=== PATIENT | female | born 1990 | race Caucasian/White ===

== ENCOUNTER → 2017-08-27 | Outpatient (CLI) | payer SELFPAY ==
--- NOTE | 2017-08-27 20:14 | Diagnostic Imaging Report ---
INDICATION: Right axillary lymphadenopathy for several years. EXAMINATION: Right breast ultrasound. FINDINGS: Sonographic interrogation of a lump in the region of the right axilla was performed. No solid or cystic masses are seen. No enlarged lymph nodes are detected. IMPRESSION: No sonographic abnormality in the right axilla is identified. Dictated by: Dictated on workstation # [id number]
== END ==
LOC: RAD 13:24
PROVIDERS: ATTEND Nurse Practitioner Family
DX: R59.0 Localized enlarged lymph nodes (principal)

== ENCOUNTER 2017-12-08 18:57 | Emergency (ER) | payer SELFPAY ==
[~2017-12-08] VITALS: Ht 170.2 cm; Wt 86.2 kg
[2017-12-08 20:09] LABS: BASOPHILS % (AUTO) 0 % (0-10); EOSINOPHILS % (AUTO) 0 % (0-10); HEMATOCRIT 42 % (35-52); HEMOGLOBIN 14.5 G/DL (11.5-16.0); LYMPHOCYTES # (AUTO) 2.5 X 10^3 (1.0-4.0); LYMPHOCYTES % (AUTO) 23 % (12-44); MEAN CORPUSCULAR HEMOGLOBIN 31 PG (25-34); MEAN CORPUSCULAR HGB CONC 35 G/DL (32-36); MEAN CORPUSCULAR VOLUME 89 FL (80-99); MEAN PLATELET VOLUME 11.6 FL (7.4-10.4); MONOCYTES # (AUTO) 1.4 X 10^3 (0.0-1.0); MONOCYTES % (AUTO) 14 % (0-12); NEUTROPHILS # (AUTO) 6.7 X 10^3 (1.8-7.8); NEUTROPHILS % (AUTO) 63 % (42-75); PLATELET COUNT 182 10^3/uL (130-400); RED BLOOD COUNT 4.72 10^6/uL (4.35-5.85); RED CELL DISTRIBUTION WIDTH 13.7 % (10.0-14.5); WHITE BLOOD COUNT 10.6 10^3/uL (4.3-11.0)
[2017-12-08] MEDS ORDERED: PANTOPRAZOLE 40 MG/10 ML (PROTONIX) VIAL IV STA (20:14)
[2017-12-08] MEDS ORDERED: LACTATED RINGERS 1,000 ML IV ONE (20:14)
[2017-12-08] MEDS ORDERED: KETOROLAC 30 MG/ML VIAL IVP ONE (20:15)
[2017-12-08] MEDS ORDERED: HYOSCYAMINE 0.125 MG (LEVSIN) TAB PO ONE (20:15)
[2017-12-08] MEDS ORDERED: ONDANSETRON 4 MG/2 ML (SDV) Z0FRAN IVP ONE (20:15)
[2017-12-08 20:21] LABS: ALANINE AMINOTRANSFERASE 19 U/L (0-55); ALBUMIN 4.3 GM/DL (3.2-4.5); ALKALINE PHOSPHATASE 52 U/L (40-136); AMYLASE 28 U/L (25-125); BILIRUBIN,TOTAL 0.8 MG/DL (0.1-1.0); BUN/CREATININE RATIO 12; CALCIUM 9.3 MG/DL (8.5-10.1); CARBON DIOXIDE 18 MMOL/L (21-32); CHLORIDE 108 MMOL/L (98-107); CREATININE SERUM 0.75 MG/DL (0.60-1.30); GFR ESTIMATED > 60; GLUCOSE 94 MG/DL (70-105); LIPASE 16 U/L (8-78); MAGNESIUM 1.9 MG/DL (1.8-2.4); POTASSIUM 3.5 MMOL/L (3.6-5.0); SODIUM 139 MMOL/L (135-145)
[2017-12-08 20:29] LABS: CLARITY,URINE SLIGHTLY CLOUDY; COLOR,URINE YELLOW; GLUCOSE, URINE (UA) NEGATIVE (NEGATIVE); KETONES,URINE 4+ (NEGATIVE); LEUKOCYTE ESTERASE ,URINE 1+ (NEGATIVE); NITRITE,URINE NEGATIVE (NEGATIVE); PH,URINE 5 (5-9); PROTEIN,URINE 2+ (NEGATIVE); UROBILINOGEN,URINE 1 MG/DL (NORMAL)
[2017-12-08 20:41] LABS: BACTERIA,URINE MODERATE /HPF; BILIRUBIN,URINE 1+ (NEGATIVE); SQUAMOUS EPITHELIAL CELL,UR 25-50 /HPF
[2017-12-08] MEDS ORDERED: IOHEXOL 350 MG/ML 100 ML (OMNIPAQUE 350) VIAL IV ONE (20:45)
[2017-12-08] MEDS ORDERED: NS 100 ML (IVPB) BAG IV ONE (20:45)
--- NOTE | 2017-12-08 20:54 | ED GI ---
General Chief Complaint: Abdominal/GI Problems Stated Complaint: VOMITING,ABD PAIN Nursing Triage Note: 48 HOURS OF N/V/D. INTENSE LOWER ABDOMEN PAIN. HEADACHE. BROWN DISCHARGE FROM VAGINA. IN ATTEMPT TO TAKE MEDICATIONS AT HOME, UNABLE TO KEEP DOWN. Sepsis Screen: Possible Sepsis Risk Source of Information: Patient Exam Limitations: No Limitations History of Present Illness Date Seen by Provider: Dec 08, 2017 Time Seen by Provider: 20:00 Initial Comments PT ARRIVES VIA POV FROM HOME BEGAN GETTING SICK ON Thursday12/06/17 STATES SHE BEGAN TO HAVE EPIGASTRIC PAIN ON THURSDAY, BUT PAIN HAS MOVED DOWN TO LOWER ABDOMEN NOW WELL--PAIN IS INTERMITTENT AND SEVERE CRAMPING C/O NAUSEA, VOMITING AND DIARRHEA STATES SHE HAS NOT KEPT ANYTHING DOWN SINCE THURSDAY--VOMITED X 1 AT 0400 AND HAD DRY HEAVES AT NOON TRIED TO EAT MAC AND CHEESE AT 2000 LAST NIGHT, THEN VOMITED AT 0400 HAS HAD APPROXIMATELY 10 EPISODES OF YELLOW WATERY DIARRHEA TODAY NOW ALSO HAS A MIGRAINE NO KNOWN FEVER BUT HAS HAD SWEATS AND CHILLS TODAY LAST VOID WAS SOMETIME THIS MORNING STATES SHE HAD A FEW SIPS OF WATER THIS MORNING AND AGAIN EARLY THIS AFTERNOON. NO KNOWN SICK CONTACTS OR SUSPICIOUS FOODS LMP 2 WEEKS AGO, BEGAN TO HAVE BROWN / OLD BLOOD VAGINAL SPOTTING/BLEEDING TODAY HAD LEEP PROCEDURE 2-3 MONTHS AGO HAS IMPLANON IN PLACE FOR 3 YEARS, AND HAS PERIODS EVERY 2 WEEKS PCP: ORTEGA Allergies and Home Medications Allergies Coded Allergies: No Known Drug Allergies (Unverified , 12/08/17) Home Medications Hyoscyamine Sulfate 0.125 Mg Tab.subl, 1-2 TAB SL Q4H Prescribed by: GENEVA WONG on 12/08/172120 Ondansetron 4 Mg Tab.rapdis, 4 MG PO Q4H Prescribed by: GENEVA WONG on 12/08/172120 Pantoprazole Sodium 40 Mg Tablet.dr, 40 MG PO DAILY Prescribed by: GENEVA WONG on 12/08/172120 Patient Home Medication List Home Medication List Reviewed: Yes Review of Systems Constitutional: see HPI, chills, diaphoresis, malaise, weakness EENTM: No Symptoms Reported Respiratory: No Symptoms Reported Cardiovascular: No Symptoms Reported Gastrointestinal: See HPI, Abdominal Pain, Diarrhea, Nausea, Poor Appetite, Poor Fluid Intake, Vomiting Genitourinary: See HPI Musculoskeletal: no symptoms reported Skin: no symptoms reported Psychiatric/Neurological: See HPI, Headache Endocrine: No Symptoms Reported Hematologic/Lymphatic: No Symptoms Reported Past Jrhpopq-Jryfda-Sjcukn Hx Patient Social History Alcohol Use: Denies Use Recreational Drug Use: Yes Drug of Choice: THC Smoking Status: Current Everyday Smoker (1 PPD) Type Used: Cigarettes (1 PPD) Recent Foreign Travel: No Contact w/Someone Who Travel: No Recent Infectious Disease Expo: No Past Medical History Surgeries: Yes (LEEP; ) Adenoidectomy, Tonsillectomy Respiratory: No Cardiac: No Neurological: Yes Headaches /Migraines : No (IMPLANON X 3 YEARS, OF 12/08/17) Reproductive Disorders: No Genitourinary: No Gastrointestinal: No Musculoskeletal: No Endocrine: No HEENT: Yes (S/P T&A) Tonsilitis Cancer: No Psychosocial: No Integumentary: No Blood Disorders: No Physical Exam Vital Signs Vital Signs - First Documented 12/08/17 19:26 Temp 99.9 Pulse 78 Resp 22 B/P (MAP) 121/69 (86) Pulse Ox 99 O2 Delivery Room Air Capillary Refill : Less Than 3 Seconds General Appearance: WD/WN, no apparent distress, other (DRAMATIC, SOBBING ON EXAM. THIS STOPPED AFTER I LEFT ROOM) HEENT: PERRL/EOMI, other (ORAL MUCOSA MOIST) Respiratory: normal breath sounds, no respiratory distress, no accessory muscle use Cardiovascular: regular rate, rhythm, no murmur Gastrointestinal: normal bowel sounds, soft, no organomegaly; No distended, No guarding, No rebound; tenderness (MILD EPIGASTRIC TENDERNESS, MODERATE SUPRAPUBIC TENDERNESS) Extremities: normal inspection, no pedal edema, no calf tenderness, normal capillary refill Back: normal inspection, no CVA tenderness Neurologic/Psychiatric: hand launderer II-XII nml as tested, no motor/sensory deficits, alert, oriented x 3 Skin: normal color, warm/dry, tattoos/piercings Progress/Results/Core Measures Results/Orders Lab Results Laboratory Tests Test 12/08/17 19:35 12/08/17 20:20 Range/Units White Blood Count 10.6 4.3-11.0 10^3/uL Red Blood Count 4.72 4.35-5.85 10^6/uL Hemoglobin 14.5 11.5-16.0 G/DL Hematocrit 42 35-52 % Mean Corpuscular Volume 89 80-99 FL Mean Corpuscular Hemoglobin 31 25-34 PG Mean Corpuscular Hemoglobin Concent 35 32-36 G/DL Red Cell Distribution Width 13.7 10.0-14.5 % Platelet Count 182 130-400 10^3/uL Mean Platelet Volume 11.6 H 7.4-10.4 FL Neutrophils (%) (Auto) 63 42-75 % Lymphocytes (%) (Auto) 23 12-44 % Monocytes (%) (Auto) 14 H 0-12 % Eosinophils (%) (Auto) 0 0-10 % Basophils (%) (Auto) 0 0-10 % Neutrophils # (Auto) 6.7 1.8-7.8 X 10^3 Lymphocytes # (Auto) 2.5 1.0-4.0 X 10^3 Monocytes # (Auto) 1.4 H 0.0-1.0 X 10^3 Eosinophils # (Auto) 0.0 0.0-0.3 10^3/uL Basophils # (Auto) 0.0 0.0-0.1 10^3/uL Sodium Level 139 135-145 MMOL/L Potassium Level 3.5 L 3.6-5.0 MMOL/L Chloride Level 108 H 98-107 MMOL/L Carbon Dioxide Level 18 L 21-32 MMOL/L Anion Gap 13 5-14 MMOL/L Blood Urea Nitrogen 9 7-18 MG/DL Creatinine 0.75 0.60-1.30 MG/DL Estimat Glomerular Filtration Rate > 60 BUN/Creatinine Ratio 12 Glucose Level 94 70-105 MG/DL Calcium Level 9.3 8.5-10.1 MG/DL Magnesium Level 1.9 1.8-2.4 MG/DL Total Bilirubin 0.8 0.1-1.0 MG/DL Aspartate Amino Transf (AST/SGOT) 22 5-34 U/L Alanine Aminotransferase (ALT/SGPT) 19 0-55 U/L Alkaline Phosphatase 52 40-136 U/L Total Protein 7.0 6.4-8.2 GM/DL Albumin 4.3 3.2-4.5 GM/DL Amylase Level 28 25-125 U/L Lipase 16 8-78 U/L Serum Test, Qualitative NEGATIVE NEGATIVE Urine Color YELLOW Urine Clarity SLIGHTLY CLOUDY Urine pH 5 5-9 Urine Specific [place] 1.015 L 1.016-1.022 Urine Protein 2+ H NEGATIVE Urine Glucose (UA) NEGATIVE NEGATIVE Urine Ketones 4+ H NEGATIVE Urine Nitrite NEGATIVE NEGATIVE Urine Bilirubin 1+ H NEGATIVE Urine Urobilinogen 1 NORMAL MG/DL Urine Leukocyte Esterase 1+ H NEGATIVE Urine RBC (Auto) 5+ H NEGATIVE Urine RBC NONE /HPF Urine WBC 2-5 /HPF Urine Squamous Epithelial Cells 25-50 H /HPF Urine Crystals NONE /LPF Urine Bacteria MODERATE H /HPF Urine Casts NONE /LPF Urine Mucus NEGATIVE /LPF Urine Culture Indicated NO My Orders Orders - GENEVA WONG DO Saline Lock/Iv-Start (12/08/17 19:59) Amylase (12/08/17 19:59) Cbc With Automated Diff (12/08/17:59) Comprehensive Metabolic Panel (12/08/17 19:59) Hcg,Qualitative Serum (12/08/17 19:59) Lipase (12/08/17 19:59) Magnesium (12/08/17 19:59) Ua Culture If Indicated (12/08/17 19:59) Ondansetron Injection (Zofran Injectio (12/08/17 20:15) Saline Lock/Iv-Start (12/08/17 20:14) Lactated Ringers (Lr 1000 Ml Iv Solution (12/08/17 20:14) Pantoprazole Injection (Protonix Injecti (12/08/17 20:14) Hyoscyamine Sl Tablet (Levsin Sl Tablet) (12/08/17 20:15) Ketorolac Injection (Toradol Injection) (12/08/17 20:15) Ct Abdomen/Pelvis W (12/08/17 20:31) Iohexol Injection (Omnipaque 350 Mg/Ml 1 (12/08/17 20:45) Ns (Ivpb) (Sodium Chloride 0.9% Ivpb Bag (12/08/17 20:45) Medications Given in ED Current Medications Medications Dose Ordered Sig/Diana Route Start Time Stop Time Status Last Admin Dose Admin Hyoscyamine Sulfate 0.25 mg ONCE ONCE PO 12/08/17 20:15 12/08/17 20:16 DC 12/08/17 21:03 0.25 MG Iohexol 100 ml ONCE ONCE IV 12/08/17 20:45 12/08/17 21:27 DC 12/08/17 20:45 100 ML Ketorolac Tromethamine 30 mg ONCE ONCE IVP 12/08/17 20:15 12/08/17 20:16 DC 12/08/17 21:03 30 MG Lactated Ringer's 1,000 ml @ 0 mls/hr Q0M ONCE IV 12/08/17 20:14 12/08/17 20:16 DC 12/08/17 21:03 0 MLS/HR Ondansetron HCl 4 mg ONCE ONCE IVP 12/08/17 20:15 12/08/17 20:16 DC 12/08/17 21:03 4 MG Sodium Chloride 100 ml ONCE ONCE IV 12/08/17 20:45 12/08/17 21:27 DC 12/08/17 20:45 100 ML Vital Signs/I&O 12/08/17 19:26 Temp 99.9 Pulse 78 Resp 22 B/P (MAP) 121/69 (86) Pulse Ox 99 O2 Delivery Room Air Blood Pressure Mean: 86 Progress Progress Note : Progress Note NO VOMITING OR DIARRHEA DURING ER STAY PT TOLERATING ICE CHIPS AND WATER PRIOR TO DISMISSAL NAUSEA AND CRAMPING/PAIN IMPROVED AT DISMISSAL VOIDED X 2 DURING ER STAY DIARRHEA X 1 DURING ER STAY, BUT DID NOT COLLECT SPECIMEN Diagnostic Imaging Comments CT ABDOMEN/PELVIS--NO ACUTE PROCESS, HETEROGENEOUS APPEARANCE OF UTERUS. PER RADIOLOGIST REPORT @ 9839 Reviewed: Reviewed by Me Departure Impression Primary Impression: Gastroenteritis Disposition: 01 HOME, SELF-CARE Condition: Improved Departure-Patient Inst. Referrals: [facility] (PCP/Family) Primary Care Physician Patient Instructions: [id number], Viral Gastroenteritis, Adult ( DC) Add. Discharge Instructions: CLEAR LIQUIDS, SIPS AT A TIME--WATER, BROTH, JELLO, GATORADE, POPSICLES TOMORROW IF YOU ARE BETTER, ADD BRATS DIET TO CLEAR LIQUIDS--BANANAS, RICE, APPLESAUCE, TOAST, SALTINES FOLLOW UP WITH [facility] IN 2-3 DAYS IF NO BETTER All discharge instructions reviewed with patient and/or family. Voiced understanding. Scripts Pantoprazole Sodium (Protonix) 40 Mg Tablet. 40 MG PO DAILY, #10 TAB Prov: GENEVA WONG DO 12/08/17 Hyoscyamine Sulfate (Levsin-Sl) 0.125 Mg Tab.subl 1-2 TAB SL Q4H for Abdominal Pain, #10 TAB Prov: GENEVA WONG DO 12/08/17 Ondansetron (Zofran Odt) 4 Mg Tab.rapdis 4 MG PO Q4H for Nausea/Vomiting, #10 TAB Prov: GENEVA WONG DO 12/08/17 GENEVA WONG DO Dec 08, 2017 20:54
--- NOTE | 2017-12-08 21:06 | Diagnostic Imaging Report ---
PROCEDURE: CT abdomen and pelvis with contrast. TECHNIQUE: Multiple contiguous axial images were obtained through the abdomen and pelvis after administration of intravenous contrast. INDICATION: Low abdominal pain No focal hepatic or splenic abnormality is identified. Gallbladder, pancreas and adrenal glands are unremarkable. Kidneys have a normal appearance. There is no free fluid seen within the abdomen. There are occasional mildly prominent mesenteric lymph nodes without pathologic adenopathy identified. There is heterogeneous enhancement of the uterus on initial images which may be due to underlying fibroid change. There are prominent follicles within the ovaries bilaterally with the largest on the left reaching approximately 1.6 cm in diameter. Partially opacified urinary bladder is unremarkable. There is a small amount of pelvic free fluid. No organized fluid collection is seen to indicate an abscess. There is no evidence of bowel obstruction. The appendix is unremarkable in appearance. There is a hyperdense focus within the cecum which could be related to ingested material. IMPRESSION: Heterogeneous enhancement of the uterus may be due to fibroid change. There are numerous dominant follicles in the ovaries. Small amount of pelvic free fluid is likely physiologic. Otherwise, no acute abnormality identified. If further evaluation is warranted, consideration could be given to pelvic ultrasonography. Dictated by: Dictated on workstation # [id number]
[2017-12-08] MEDS ORDERED: PANT40TA2 PO (21:21)
[2017-12-08] MEDS ORDERED: ONDA4TAB8 PO (21:21)
[2017-12-08] MEDS ORDERED: HYOS0.1283 SL (21:21)
[2017-12-08] MEDS ORDERED: RX-HYOSCYAMINE 0.125 MG SL (LEVSIN) PPK#6 SL STA (21:48)
[2017-12-08] MEDS ORDERED: RX-ONDANSETRON 4 MG ODT (ZOFRAN) PPK #4 PO STA (21:48)
[2017-12-08 22:02] VITALS: BP 115/64
== END 2017-12-08 22:00 | disposition home or self-care (01) ==
LOC: EDUNIT# 18:57 → ER 18:58
DX: K52.9 Noninfective gastroenteritis and colitis, unspecified (principal); G43.909 Migraine, unspecified, not intractable, without status migrainosus; F12.90 Cannabis use, unspecified, uncomplicated; F17.210 Nicotine dependence, cigarettes, uncomplicated; Z90.89 Acquired absence of other organs
CPT/HCPCS: 36415; 74177; 80053; 81000; 82150; 83690; 83735; 84703; 85025; 96361; 96374; 96375

== ENCOUNTER → 2018-08-04 | Outpatient (CLI) | payer OTHER ==
[~2018-08-04] MED LIST: HYOS0.1283 SL; ONDA4TAB8 PO; PANT40TA2 PO
--- NOTE | 2018-08-04 19:54 | Diagnostic Imaging Report ---
INDICATION: Palpable lumps in the right breast. No prior mammograms are available for comparison. 2-D and 3-D bilateral diagnostic mammography was performed with a Computer Aided Detection (CAD) system. FINDINGS: Both breasts are heterogeneously dense, limiting the sensitivity of mammography. There is a nodular density in the retroareolar right breast best seen on the CC view. BB markers are placed in the medial and lateral aspect of the right breast as well but no underlying abnormality is seen. However, breast tissue is dense and underlying mass cannot be entirely excluded. Axillae are unremarkable. No suspicious calcifications are seen. Left breast is unremarkable. IMPRESSION: There is a nodular density in the retroareolar right breast which may account for one of the palpable abnormalities. Further evaluation of this area as well as the other areas in the right breast where there are palpable abnormalities is recommended and will be performed today. In addition, patient complains of some pain in the right axilla and this area will be evaluated with ultrasound as well. ACR BI-RADS Category 0: Incomplete. (Needs additional imaging evaluation). Result letter will be mailed to the patient. Note: At least 10% of breast cancer is not imaged by mammography. Dictated by: Dictated on workstation # [id number]
--- NOTE | 2018-08-04 20:12 | Diagnostic Imaging Report ---
INDICATION: Palpable lumps in the right breast. Sonographic interrogation of the areas of lumps in the medial and lateral and retroareolar right breast was performed. In addition, sonographic interrogation of the right axilla was performed at the area of pain. No sonographic abnormality is seen. No solid or cystic masses are detected by ultrasound. IMPRESSION: No sonographic abnormality is seen. Continued close clinical and self breast exam is recommended to confirm stability of the areas of palpable abnormality. ACR BI-RADS Category 1: Negative. Dictated by: Dictated on workstation # [id number]
== END ==
LOC: RAD 08:49
PROVIDERS: ATTEND Nurse Practitioner Primary Care
DX: N63.10 Unspecified lump in the right breast, unspecified quadrant (principal)
CPT/HCPCS: 77066

== ENCOUNTER 2022-12-16 07:00 | Inpatient (IN) | payer MEDICAID ==
[~2022-12-16] VITALS: Ht 167.7 cm; Wt 94.6 kg
[2022-12-18] VITALS (38 sets, daily range): BP systolic 109–157; BP diastolic 57–98
[2022-12-18] MEDS ORDERED: AMPICILLIN FOR IV USE 2,000 MG in NS (IVPB) 50 ML IV SCH (07:41)
[2022-12-18] MEDS ORDERED: D5 LR IV SOLUTION 1,000 ML IV SCH (07:45)
[2022-12-18] MEDS ORDERED: MINERAL OIL 30 ML UDC TOP PRN (07:45)
[2022-12-18 08:11] LABS: BASOPHILS % (AUTO) 0 % (0-10); EOSINOPHILS # (AUTO) 0.1 10^3/uL (0.0-0.3); EOSINOPHILS % (AUTO) 1 % (0-10); HEMATOCRIT 32 % (35-52); HEMOGLOBIN 10.6 g/dL (11.5-16.0); LYMPHOCYTES # (AUTO) 2.9 10^3/uL (1.0-4.0); LYMPHOCYTES % (AUTO) 24 % (12-44); MEAN CORPUSCULAR HEMOGLOBIN 30 pg (25-34); MEAN CORPUSCULAR HGB CONC 33 g/dL (32-36); MEAN CORPUSCULAR VOLUME 89 fL (80-99); MEAN PLATELET VOLUME 11.3 fL (9.0-12.2); MONOCYTES % (AUTO) 8 % (0-12); NEUTROPHILS # (AUTO) 7.8 10^3/uL (1.8-7.8); NEUTROPHILS % (AUTO) 65 % (42-75); PLATELET COUNT 233 10^3/uL (130-400); WHITE BLOOD COUNT 11.9 10^3/uL (4.3-11.0)
[2022-12-18] MEDS ORDERED: AMPICILLIN FOR IV USE 1,000 MG in NS (IVPB) 50 ML IV SCH (11:45)
[2022-12-18] MEDS ORDERED: OXYTOCIN PRE-MIX DRIP 500 ML IV SCH (12:00)
--- NOTE | 2022-12-18 12:49 | History & Physical-OB ---
OB - Chief Complaint & HPI Date/Time Date of Admission: Date of Admission: Dec 18, 2022 at 07:19 Date seen by a Provider: Dec 18, 2022 Time Seen by a Provider: 08:30 Chief Complaint/History OB-Reason for Admission/Chief: Induction of Labor Hx : 3 Hx Para: 1 Expected Date of Delivery: Dec 21, 2022 Gestational Age in Weeks: 39 Gestational Age in Days: 4 History of Labs A neg, Ab neg, Rub Imm HIV/RPR/HepB/C NR Normal 1 hr GTT GBS Pos Allergies and Home Medications Allergies Coded Allergies: No Known Drug Allergies (Unverified , 12/08/17) Patient Home Medication List Home Medication List Reviewed: Yes Hyoscyamine Sulfate (Levsin-Sl) 0.125 Mg Tab.subl, 1-2 TAB SL Q4H Prescribed by: GENEVA WONG on 12/08/172120 Ondansetron (Zofran Odt) 4 Mg Tab.rapdis, 4 MG PO Q4H Prescribed by: GENEVA WONG on 12/08/172120 Pantoprazole Sodium (Protonix) 40 Mg Tablet.dr, 40 MG PO DAILY Prescribed by: GENEVA WONG on 12/08/172120 OB - History Hx of Present Care: Yes Ultrasounds: Normal mid trimester US Obstetrical Complications: None Medical Complications: None Information Induced Hypertension: No Maternal Gestational Diabetes: No Hemorrhage: No Obstetrical History Hx : 3 Hx Para: 1 Hx # Term Pregnancies: 1 Number of Living Children: 1 Patient Past Medical History H/o tobacco use in Abnormal pap s/p Leep Social History/Family History Alcohol Use: Denies Use Recreational Drug Use: No Smoking Cessation: Current every day smoker Immunizations Influenza Vaccine Up-to-Date: No; Not Current Hepatitis A: Yes Hepatitis B: Yes Tetanus Booster (TDap): Less than 5yrs Rubella: immune RPR/VDRL: Negative GBS Status: Positive HBsAG: Negative OB - Admission Exam Physical Exam Vitals: Vital Signs 12/18/22 07:30 Temp 37.3 Pulse 81 Resp 18 Pulse Ox 98 O2 Delivery Room Air HEENT: NCAT Heart: Rhythm Normal Lungs: Clear Abdomen: Gravid Cervical Dilatation: 3cm Effacement: 75% Station: -1 Membranes: Intact Heart Rate: 120's Accelerations: Accelerations Present Decelerations: No Decelerations Short Term Variability: Present Intermediate Variability: Average (6-25) Contractions on Admission: 6-10 Minutes Apart Tellez Scoring Tool (Modified) Dilation (cm): 3-4cm (2) Effacement (%): 51-79% (2) Descent/Station: -1,0 (2) Cervix Consistency: Medium(1) Cervix Position: Posterior (0) Add 1 point for: Each previous vaginal delivery (1) Tellez Score: 8 Labs Laboratory Tests Test 12/18/22 08:00 Range/Units White Blood Count 11.9 H 4.3-11.0 10^3/uL Red Blood Count 3.55 L 3.80-5.11 10^6/uL Hemoglobin 10.6 L 11.5-16.0 g/dL Hematocrit 32 L 35-52 % Mean Corpuscular Volume 89 80-99 fL Mean Corpuscular Hemoglobin 30 25-34 pg Mean Corpuscular Hemoglobin Concent 33 32-36 g/dL Red Cell Distribution Width 15.3 H 10.0-14.5 % Platelet Count 233 130-400 10^3/uL Mean Platelet Volume 11.3 9.0-12.2 fL Immature Granulocyte % (Auto) 1 % Neutrophils (%) (Auto) 65 42-75 % Lymphocytes (%) (Auto) 24 12-44 % Monocytes (%) (Auto) 8 0-12 % Eosinophils (%) (Auto) 1 0-10 % Basophils (%) (Auto) 0 0-10 % Neutrophils # (Auto) 7.8 1.8-7.8 10^3/uL Lymphocytes # (Auto) 2.9 1.0-4.0 10^3/uL Monocytes # (Auto) 1.0 0.0-1.0 10^3/uL Eosinophils # (Auto) 0.1 0.0-0.3 10^3/uL Basophils # (Auto) 0.0 0.0-0.1 10^3/uL Immature Granulocyte # (Auto) 0.1 0.0-0.1 10^3/uL Syphilis Total Antibody Negative Negative OB - Assessment/Plan/Diagnosis Assessment Assessment: group B positive strep, induction of labor Admission Dx Third Trimester 39 weeks gestation GBS + Tobacco use in Admission Status: Inpatient Order (span 2 midnights) Reason for Inpatient Admission: labor and immediate post care Plan Plan: Induction Other Plan 32 yo @ 39.4 wag here for elective IOL Plan - GBS +, start ampicillin - Will plan on AROM after 2nd dose of AB - Expect vaginal delivery Copy Copies To 1: RICHARDSON MALDONADO MD, HOLLY R MD Dec 18, 2022 12:49
--- NOTE | 2022-12-18 12:54 | Labor Progress Note ---
Labor Progress Note Labor Progress Note Date Seen by Provider: Dec 18, 2022 Time Seen by Provider: 12:20 Subjective: Pt denies complaints. Feeling more pressure. Denies LOF Objective: /- posterior AROM clear 1230 Assessment/Plan: Yvtete Ohara is a (32 /Para 3 / 1,Gestational Age (wks)39.4 here for elective IOL CEFM/TOCO Continue pitocin protocol for IOL GBS +, just received 2nd dose of antibiotics AROM clear 1230 Anesthesia: plans on epidural Anticipate vaginal delivery. Vitals - Labs Vital Signs - I&O Vital Signs Date Time Temp Pulse Resp B/P (MAP) Pulse Ox O2 Delivery O2 Flow Rate FiO2 12/18/22 07:30 37.3 81 18 98 Room Air Labs Laboratory Tests 12/18/22 08:00: White Blood Count 11.9H, Red Blood Count 3.55L, Hemoglobin 10.6L, Hematocrit 32L , Mean Corpuscular Volume 89, Mean Corpuscular Hemoglobin 30, Mean Corpuscular Hemoglobin Concent 33, Red Cell Distribution Width 15.3H, Platelet Count 233, Mean Platelet Volume 11.3, Immature Granulocyte % (Auto) 1, Neutrophils (%) (Auto) 65, Lymphocytes (%) (Auto) 24, Monocytes (%) (Auto) 8, Eosinophils (%) (Auto) 1, Basophils (%) (Auto) 0, Neutrophils # (Auto) 7.8, Lymphocytes # (Auto) 2.9, Monocytes # (Auto) 1.0, Eosinophils # (Auto) 0.1, Basophils # (Auto) 0.0, Immature Granulocyte # (Auto) 0.1, Syphilis Total Antibody Negative RICHARDSON MALDONADO MD Dec 18, 2022 12:54
[2022-12-18] MEDS ORDERED: fentaNYL 2 mcg/ml BUPIVA 0.125 100 ML ONE (13:28)
[2022-12-18] MEDS ORDERED: fentaNYL INJ 100 MCG/2 ML AMP ONE (13:56)
[2022-12-18] MEDS ORDERED: BUPIVACAINE 0.25% 10 ML (SENSORCAINE) VIAL ONE (13:56)
[2022-12-18] MEDS ORDERED: CATHETER FLUSH 10 ML SYR IV SCH ×2 (14:00→22:00)
[2022-12-18] MEDS ORDERED: fentaNYL 2 mcg/ml BUPIVA 0.125 100 ML EPI SCH (14:30)
[2022-12-18] MEDS ORDERED: NALOXONE 0.4 MG/ML 1 ML (NARCAN) VIAL IV PRN (14:30)
[2022-12-18] MEDS ORDERED: LACTATED RINGERS 1,000 ML IV ONE ×2 (14:30)
[2022-12-18] MEDS ORDERED: ONDANSETRON 4 MG/2 ML (SDV) Z0FRAN ONE (14:30)
[2022-12-18] MEDS ORDERED: fentaNYL INJ 100 MCG/2 ML AMP INJ ONE (14:30)
[2022-12-18] MEDS: ONDANSETRON 4 MG/2 ML (SDV) Z0FRAN IV PRN ×2 (14:35→16:44)
[2022-12-18] MEDS: OXYTOCIN PRE-MIX DRIP 500 ML IV SCH ×2 (15:55→16:45)
[2022-12-18] MEDS ORDERED: METHYLERGONOVINE 0.2 MG/ML (METHERGINE) AMP ONE (16:07)
--- NOTE | 2022-12-18 16:13 | OB Labor & Delivery Record ---
Vag Delivery Note Vag Delivery Note Date of Delivery: 12/18/22 Preoperative Diagnosis: Yvette Ohara is a (32 /Para 3 / 1, Gestational Age (wks)39.4 for Elective IOL Postoperative Diagnosis: Same Surgeon: RICHARDSON MALDONADO MD Assembly Person: None Anesthesia: Epidural Delivery Type: @ 1555 Findings: Viable Male infant, apgars 9/9, weight [] Lacerations: bilateral periurethral abrasions Intact placenta with 3 vessel cord. No nuchal cord, body cord or shoulder dystocia Estimated Blood Loss: 100 ml Complications: None Condition: Stable Description of Procedure: The patient is a 32 year old female who presented for elective IOL. She was admitted and informed consent was obtained. Her labor course was remarkable for pitocin augmentation. She progressed to complete dilatation and began to push. She was then set up for delivery. The infant's head was delivered atraumatically in the BILLIE position. The shoulders and remainder of the infant's body were then delivered without difficulty. Upon delivery, the infant was vigorous and placed on maternal chest and the mouth and nares were bulb suctioned. After a 2 min delay cord was doubly clamped and cut by maternal grandfather and the remained on maternal chest. An intact placenta with 3-vessel cord delivered via Rebeca and there was found to be minimal bleeding.~ Vigorous fundal massage was performed and the fundus was found to be firm. IV oxytocin was given. Examination of the vagina and perineum revealed a bilateral periurethral lacerations that did not require repair. Following the repair, sponge, instrument and needle counts were correct. Mom and baby were both in stable condition in the labor suite. Vitals - Labs Vital Signs - I&O Vital Signs Date Time Temp Pulse Resp B/P (MAP) Pulse Ox O2 Delivery O2 Flow Rate FiO2 12/18/22 14:44 62 18 125/73 (90) 100 12/18/22 14:41 63 18 128/68 (88) 100 12/18/22 14:38 58 18 128/72 (90) 99 12/18/22 14:35 67 18 124/75 (91) 99 12/18/22 14:32 69 18 123/74 (90) 99 12/18/22 14:29 65 18 117/71 (86) 99 12/18/22 14:26 76 18 119/73 (88) 99 12/18/22 14:23 63 18 118/67 (84) 100 12/18/22 14:15 82 18 120/85 (97) 12/18/22 14:00 57 123/76 (92) 12/18/22 13:45 76 133/84 (100) 12/18/22 13:30 61 138/76 (96) 12/18/22 13:15 74 120/75 (90) 12/18/22 13:00 69 109/64 (79) 12/18/22 12:45 74 135/68 (90) 12/18/22 12:30 66 115/63 (80) 12/18/22 12:15 36.2 74 18 117/60 (79) 12/18/22 07:30 37.3 81 18 98 Room Air Labs Laboratory Tests 12/18/22 08:00: White Blood Count 11.9H, Red Blood Count 3.55L, Hemoglobin 10.6L, Hematocrit 32L , Mean Corpuscular Volume 89, Mean Corpuscular Hemoglobin 30, Mean Corpuscular Hemoglobin Concent 33, Red Cell Distribution Width 15.3H, Platelet Count 233, Mean Platelet Volume 11.3, Immature Granulocyte % (Auto) 1, Neutrophils (%) (Auto) 65, Lymphocytes (%) (Auto) 24, Monocytes (%) (Auto) 8, Eosinophils (%) (Auto) 1, Basophils (%) (Auto) 0, Neutrophils # (Auto) 7.8, Lymphocytes # (Auto) 2.9, Monocytes # (Auto) 1.0, Eosinophils # (Auto) 0.1, Basophils # (Auto) 0.0, Immature Granulocyte # (Auto) 0.1, Syphilis Total Antibody Negative RICHARDSON MALDONADO MD Dec 18, 2022 16:13
[2022-12-18] MEDS ORDERED: WITCH HAZEL(TUCKS) 40 EA JAR TOP PRN (16:15)
[2022-12-18] MEDS ORDERED: BENZOCAINE/MENTHOL (DERMOPLAST) 56 ML CAN TP PRN (16:15)
[2022-12-18] MEDS: ACETAMINOPHEN 500 MG TAB (TYLENOL) PO SCH (21:05)
[2022-12-18] MEDS: IBUPROFEN 600 MG (MOTRIN) TAB PO SCH (21:05)
[2022-12-18] MEDS: DOCUSATE SODIUM 100 MG (COLACE) CAP PO SCH (21:05)
[2022-12-19 00:55] VITALS: BP 116/63
[2022-12-19] MEDS: ACETAMINOPHEN 500 MG TAB (TYLENOL) PO SCH ×5 (03:26→22:44)
[2022-12-19] MEDS: IBUPROFEN 600 MG (MOTRIN) TAB PO SCH ×5 (03:27→22:12)
[2022-12-19 05:33] VITALS: BP 114/57
[2022-12-19 06:07] LABS: BASOPHILS % (AUTO) 0 % (0-10); EOSINOPHILS # (AUTO) 0.1 10^3/uL (0.0-0.3); EOSINOPHILS % (AUTO) 1 % (0-10); HEMATOCRIT 30 % (35-52); LYMPHOCYTES # (AUTO) 3.2 10^3/uL (1.0-4.0); LYMPHOCYTES % (AUTO) 25 % (12-44); MEAN CORPUSCULAR HEMOGLOBIN 30 pg (25-34); MEAN CORPUSCULAR HGB CONC 33 g/dL (32-36); MEAN CORPUSCULAR VOLUME 90 fL (80-99); MEAN PLATELET VOLUME 11.7 fL (9.0-12.2); MONOCYTES # (AUTO) 1.3 10^3/uL (0.0-1.0); MONOCYTES % (AUTO) 10 % (0-12); NEUTROPHILS # (AUTO) 8.1 10^3/uL (1.8-7.8); NEUTROPHILS % (AUTO) 63 % (42-75); PLATELET COUNT 175 10^3/uL (130-400); WHITE BLOOD COUNT 12.8 10^3/uL (4.3-11.0)
[2022-12-19] MEDS ORDERED: RHO(D) IMMUNE GLOBULIN 300 MCG/2 ML SYRINGE IM/IV ONE (07:30)
[2022-12-19] MEDS: PRENATAL VITAMIN 1 EA TAB PO SCH (07:47)
[2022-12-19] MEDS: FERROUS SULF 325 MG (IRON) TAB PO SCH (07:47)
[2022-12-19] MEDS: DOCUSATE SODIUM 100 MG (COLACE) CAP PO SCH ×2 (07:47→22:12)
[2022-12-19 08:00] VITALS: BP 116/62
--- NOTE | 2022-12-19 11:28 | Postpartum Progress Note ---
Note Note Day # 1 Subjective: Patient is without complaints. Ambulating, voiding. Tolerating a regular diet without nausea or vomiting. Normal lochia. Pain is well controlled with oral pain medications. Breast feeding. Physical Exam: General - Alert and oriented, no apparent distress Abdomen - Soft, appropriately tender to palpation, non-distended, fundus firm at umbilicus Extremities - no edema, negative Myranda's bilaterally Laboratory Tests 12/18/22 08:00: White Blood Count 11.9H, Red Blood Count 3.55L, Hemoglobin 10.6L, Hematocrit 32L , Mean Corpuscular Volume 89, Mean Corpuscular Hemoglobin 30, Mean Corpuscular Hemoglobin Concent 33, Red Cell Distribution Width 15.3H, Platelet Count 233, Mean Platelet Volume 11.3, Immature Granulocyte % (Auto) 1, Neutrophils (%) (Auto) 65, Lymphocytes (%) (Auto) 24, Monocytes (%) (Auto) 8, Eosinophils (%) (Auto) 1, Basophils (%) (Auto) 0, Neutrophils # (Auto) 7.8, Lymphocytes # (Auto) 2.9, Monocytes # (Auto) 1.0, Eosinophils # (Auto) 0.1, Basophils # (Auto) 0.0, Immature Granulocyte # (Auto) 0.1, Syphilis Total Antibody Negative 12/19/22 05:46: White Blood Count 12.8H, Red Blood Count 3.35L, Hemoglobin 10.0L, Hematocrit 30L , Mean Corpuscular Volume 90, Mean Corpuscular Hemoglobin 30, Mean Corpuscular Hemoglobin Concent 33, Red Cell Distribution Width 15.3H, Platelet Count 175, Mean Platelet Volume 11.7, Immature Granulocyte % (Auto) 1, Neutrophils (%) (Auto) 63, Lymphocytes (%) (Auto) 25, Monocytes (%) (Auto) 10, Eosinophils (%) (Auto) 1, Basophils (%) (Auto) 0, Neutrophils # (Auto) 8.1H, Lymphocytes # (Auto) 3.2, Monocytes # (Auto) 1.3H, Eosinophils # (Auto) 0.1, Basophils # (Auto) 0.0, Immature Granulocyte # (Auto) 0.1 Assessment: post- day # 1, status post vaginal delivery; elective IOL at 39wk Recovering well, hemodynamically stable Plan: Routine care. Encourage breast feeding. Encourage ambulation. Plan for discharge tomorrow. Vitals - Labs Vital Signs - I&O Vital Signs Date Time Temp Pulse Resp B/P (MAP) Pulse Ox O2 Delivery O2 Flow Rate FiO2 12/19/22 08:00 36.4 58 18 116/62 (80) 99 Room Air 12/19/22 05:33 36.1 79 20 114/57 (76) 98 Room Air 12/19/22 00:55 36.3 64 18 116/63 (80) 99 Room Air 12/18/22 21:10 36.7 72 16 118/61 (80) 98 Room Air 12/18/22 17:12 53 18 138/66 (90) 12/18/22 16:57 47 18 127/57 (80) 12/18/22 16:42 69 18 131/60 (83) 12/18/22 16:27 71 18 145/63 (90) 12/18/22 15:57 88 18 157/98 (117) 12/18/22 15:47 75 18 137/67 (90) 100 12/18/22 15:42 75 18 133/90 (104) 99 12/18/22 15:37 76 18 131/87 (102) 100 12/18/22 15:32 63 18 110/65 (80) 100 12/18/22 15:27 64 18 122/74 (90) 100 12/18/22 15:22 62 18 117/70 (86) 98 12/18/22 15:17 63 18 114/69 (84) 99 12/18/22 15:12 60 18 124/74 (91) 99 12/18/22 15:07 71 18 123/65 (84) 100 12/18/22 15:02 54 18 123/79 (94) 100 12/18/22 14:56 70 18 128/68 (88) 100 12/18/22 14:53 65 18 131/65 (87) 100 12/18/22 14:50 72 18 124/72 (89) 100 12/18/22 14:47 65 18 121/72 (88) 99 12/18/22 14:44 62 18 125/73 (90) 100 12/18/22 14:41 63 18 128/68 (88) 100 12/18/22 14:38 58 18 128/72 (90) 99 12/18/22 14:35 67 18 124/75 (91) 99 12/18/22 14:32 69 18 123/74 (90) 99 12/18/22 14:29 65 18 117/71 (86) 99 12/18/22 14:26 76 18 119/73 (88) 99 12/18/22 14:23 63 18 118/67 (84) 100 12/18/22 14:15 82 18 120/85 (97) 12/18/22 14:00 57 123/76 (92) 12/18/22 13:45 76 133/84 (100) 12/18/22 13:30 61 138/76 (96) 12/18/22 13:15 74 120/75 (90) 12/18/22 13:00 69 109/64 (79) 12/18/22 12:45 74 135/68 (90) 12/18/22 12:30 66 115/63 (80) 12/18/22 12:15 36.2 74 18 117/60 (79) I & O 12/19/22 07:00 Intake Total 3114.8 ml Balance 3114.8 ml Labs Laboratory Tests 12/19/22 05:46: White Blood Count 12.8H, Red Blood Count 3.35L, Hemoglobin 10.0L, Hematocrit 30L , Mean Corpuscular Volume 90, Mean Corpuscular Hemoglobin 30, Mean Corpuscular Hemoglobin Concent 33, Red Cell Distribution Width 15.3H, Platelet Count 175, Mean Platelet Volume 11.7, Immature Granulocyte % (Auto) 1, Neutrophils (%) (Auto) 63, Lymphocytes (%) (Auto) 25, Monocytes (%) (Auto) 10, Eosinophils (%) (Auto) 1, Basophils (%) (Auto) 0, Neutrophils # (Auto) 8.1H, Lymphocytes # (Auto) 3.2, Monocytes # (Auto) 1.3H, Eosinophils # (Auto) 0.1, Basophils # (Auto) 0.0, Immature Granulocyte # (Auto) 0.1 ROSMERY SEE DO Dec 19, 2022 11:28
--- NOTE | 2022-12-19 14:26 | Anesthesia-Regional Post-Op ---
Regional Patient Condition Mental Status: Alert, Oriented x3 Circulation: Same as Pre-Op Headache: Absent Sensation: Full Recovery Motor Block: Absent Post Op Complications Complications None Follow Up Care/Instructions Patient Instructions None needed. Anesthesia/Patient Condition Patient is doing well, no complaints, stable vital signs, no apparent adverse anesthesia problems. No complications reported per nursing. KEISHA REDD CRNA Dec 19, 2022 14:26
[2022-12-19 14:30] VITALS: BP 115/66
[2022-12-19 22:11] VITALS: BP 121/59
[2022-12-19] MEDS ORDERED: ONDANSETRON 4 MG (ZOFRAN) ORAL DISSOLVE TAB PO ONE (22:30)
[2022-12-19] MEDS ORDERED: ONDANSETRON 4 MG (ZOFRAN) ORAL DISSOLVE TAB ONE (22:35)
[2022-12-20 04:03] VITALS: BP 112/75
[2022-12-20] MEDS: ACETAMINOPHEN 500 MG TAB (TYLENOL) PO SCH ×3 (04:05→15:17)
[2022-12-20] MEDS: IBUPROFEN 600 MG (MOTRIN) TAB PO SCH ×3 (04:05→15:17)
--- NOTE | 2022-12-20 09:00 | Discharge Summary ---
Discharge Summary Hospital Course Hospital Course Date of Admission: Dec 18, 2022 at 07:19 Admission Diagnosis : Induction of labor Term intrauterine at 39 weeks [facility]: 12/20/22 Discharge Diagnosis: s/p spontaneous vaginal delivery asymptomatic acute blood loss anemia Hospital Course: 32 yo female admitted for induction of labor, had unremarkable labor, delivery and course. Labs and Pending Lab Test: Home Meds Active Home Meds Active Docusate Sodium 100 Mg Capsule 100 Mg PO BID Ibu (Ibuprofen) 600 Mg Tablet 600 Mg PO Q6H PRN Ferosul (Ferrous Sulfate) 325 Mg (65 Mg Iron) Tablet 325 Mg PO DAILY Zofran Odt (Ondansetron) 4 Mg Tab.rapdis 4 Mg PO Q4H Reported Vitamin Tablet ( Vit No.124/Iron/FA) 27 Mg Iron-800 Mcg Tablet 1 Each PO DAILY Sertraline HCl 50 Mg Tablet 50 Mg PO DAILY Acid Outside Laborer (FAMOTIDINE) (Famotidine) 20 Mg Tablet 20 Mg PO BID Assessment/Pt DC Instructions Follow up with Dr. Hope in 6 weeks. Discharge Diet: Regular Diet Activity as Tolerated: Yes (avoid strenuous activity x 6 weeks) Discharge Physical Examination Allergies: Coded Allergies: No Known Drug Allergies (Unverified , 12/08/17) General Appearance: No Apparent Distress Respiratory: Lungs Clear Cardiovascular: Regular Rate, Rhythm Extremity: No Pedal Edema Skin: Warm/Dry Neurologic/Psychiatric: Alert, Normal Mood/Affect BALAJI HUBER MD Dec 20, 2022 09:00
[2022-12-20] MEDS ORDERED: PREN-142 PO (09:03)
[2022-12-20] MEDS ORDERED: SERT-413 PO (09:03)
[2022-12-20] MEDS ORDERED: FAMO20TA3 PO (09:03)
[2022-12-20] MEDS ORDERED: FERR325T24 PO (09:13)
[2022-12-20] MEDS ORDERED: IBUP-844 PO (09:13)
[2022-12-20] MEDS ORDERED: DOCU100C37 PO (09:13)
[2022-12-20] MEDS: PRENATAL VITAMIN 1 EA TAB PO SCH (09:28)
[2022-12-20] MEDS: FERROUS SULF 325 MG (IRON) TAB PO SCH (09:28)
[2022-12-20] MEDS: DOCUSATE SODIUM 100 MG (COLACE) CAP PO SCH (09:28)
[2022-12-20 09:47] VITALS: BP 111/61
[2022-12-20 15:19] VITALS: BP 124/59
== END 2022-12-20 17:20 | disposition home or self-care (01) | DRG 806 ==
LOC: LDRP 12-18 07:19
PROVIDERS: ADMIT Family Medicine; ATTEND Family Medicine
PROC: 10E0XZZ Delivery of Products of Conception, External Approach (ICD-10-PCS; principal; 2022-12-18)
PROC: 10907ZC Drainage of Amniotic Fluid, Therapeutic from Products of Conception, Via Natural or Artificial Opening (ICD-10-PCS; 2022-12-18)
DX: O99.824 Streptococcus B carrier state complicating childbirth (principal); D62 Acute posthemorrhagic anemia; Z37.0 Single live birth; Z3A.39 39 weeks gestation of pregnancy; O99.334 Smoking (tobacco) complicating childbirth; F17.200 Nicotine dependence, unspecified, uncomplicated; O71.82 Other specified trauma to perineum and vulva; O90.81 Anemia of the puerperium
CPT/HCPCS: 36415; 83033; 85025; 86780; 86850; 86900; 86901